=== PATIENT | female | born 1985 | race Caucasian/White ===

== ENCOUNTER 2019-02-14 21:59 | Emergency (ER) | payer OTHER ==
--- NOTE | 2019-02-14 22:27 | ERPHSYRPT ---
- History of Present Illness Time Seen by Provider: 02/14/19 22:21 Source: patient Exam Limitations: no limitations Patient Subjective Stated Complaint: pt states at home she began having tunnel vision, difficulty forming sentences, and difficulty remembering some names. states after approx 5 minutes, difficulty speaking and memory problems resolved but still has tunnel vision and headache which is typical of her migraines Triage Nursing Assessment: pt alert and oreinted, answers questions approp. pt ambulatory with steady gait noted. respirations nonlabored with lungs cta. skin warm and dry. pupils equal and reactive. Physician History: 33-year-old white female 3 para 2 who states she is 36 weeks arrives with complaint of frontal headache associated with memory loss and some speech problems she states the headache began at approximately 8:00 shortly thereafter she had approximately 5-10 minutes where she was having problems forming sentences and had some slurry speech patient states that his memory problems and slurry speech resolved after 5-10 minutes she is now has a left frontal headache and some tunnel vision she states she gets tunnel vision with her migraines. She is not having any problems . moving or speaking at this time. Past medical history includes migraines she past surgical history is negative Timing/Duration: today (8:30 thyis evening) Severity: moderate Associated Symptoms: headaches, other (tunnel vision, brief episode of memory loss and slurry speech lasting 5-10 minutes), No nausea, No vomiting, No abdominal pain, No shortness of breath, No heartburn, No diaphoresis, No cough, No chills, No chest pain, No fever, No loss of appetite, No malaise, No rash, No syncope, No seizure, No weakness Allergies/Adverse Reactions: No Known Drug Allergies Allergy (Verified 02/14/19 22:17) Home Medications: Vits W-Ca,Fe,FA(<1Mg) [] 1 each PO DAILY 02/14/19 [History] Hx Tetanus, Diphtheria Vaccination/Date Given: Yes Hx Influenza Vaccination/Date Given: No Hx Pneumococcal Vaccination/Date Given: No Immunizations Up to Date: Yes - Review of Systems Constitutional: No Fever, No Chills Eyes: Other (tunnel vision) Ears, Nose, & Throat: No Symptoms Respiratory: No Cough, No Dyspnea Cardiac: No Chest Pain, No Edema, No Syncope Abdominal/Gastrointestinal: No Abdominal Pain, No Nausea, No Vomiting, No Diarrhea Musculoskeletal: No Back Pain, No Neck Pain Skin: No Rash Neurological: Headache, Other (5-10 minutes of memory loss and slurry speech) Psychological: No Symptoms Endocrine: No Symptoms All Other Systems: Reviewed and Negative - Past Medical History Pertinent Past Medical History: No Neurological History: Migraines ENT History: No Pertinent History Cardiac History: No Pertinent History Respiratory History: No Pertinent History Endocrine Medical History: No Pertinent History Musculoskeletal History: No Pertinent History GI Medical History: GERD History: No Pertinent History Psycho-Social History: Anxiety Female Reproductive Disorders: No Pertinent History - Past Surgical History Past Surgical History: Yes Neuro Surgical History: No Pertinent History Cardiac: No Pertinent History Respiratory: No Pertinent History Gastrointestinal: No Pertinent History Genitourinary: No Pertinent History Musculoskeletal: Orthopedic Surgery Female Surgical History: No Pertinent History Other Surgical History: T&A, fx right arm with surgery x three with hdwe in and out, sinsus surgery - Social History Smoking Status: Never smoker Exposure to second hand smoke: No Drug Use: none Patient Lives Alone: No - Female History Hx Now: Yes Expected Date of Delivery: 03/12/19 - Nursing Vital Signs Nursing Vital Signs: Initial Vital Signs Temperature 98.3 F 02/14/19 22:04 Pulse Rate 86 02/14/19 22:04 Respiratory Rate 16 02/14/19 22:04 Blood Pressure 132/81 02/14/19 22:04 O2 Sat by Pulse Oximetry 100 02/14/19 22:04 Pain Scale Pain Intensity 4 - Physical Exam General Appearance: no apparent distress, alert Eye Exam: PERRL/EOMI, eyes nml inspection Ears, Nose, Throat Exam: normal ENT inspection, TMs normal, pharynx normal, moist mucous membranes Neck Exam: normal inspection, non-tender, supple, full range of motion Respiratory Exam: normal breath sounds, lungs clear, No respiratory distress Cardiovascular Exam: regular rate/rhythm, normal heart sounds, normal peripheral pulses, capillary refill <2 sec Gastrointestinal/Abdomen Exam: soft, normal bowel sounds, other (Gravid abdomen) , No tenderness, No mass Back Exam: normal inspection Extremity Exam: normal inspection, normal range of motion, pelvis stable Neurologic Exam: alert, oriented x 3, cooperative, block cutter II-XII nml as tested, normal mood/affect, nml cerebellar function, nml station & gait, sensation nml, other (patient alert, oriented x3, cranial nerves II through XII are intact, DTRs symmetrical equal 2/4 speech normal, no facial droop, normal finger to nose.no pronator drift. Sensation intact to all extremities. Full range of motion all extremities.), No motor deficits Skin Exam: normal color, warm, dry, No rash SpO2 Interpretation: normal (100%) SpO2: 100 - Course Nursing assessment & vital signs reviewed: Yes Ordered Tests: Active Orders 24 hr Category Date Time Status IV Insertion STAT Care 02/14/19 22:20 Active AMYLASE Stat Lab 02/14/19 22:30 Completed CBC W DIFF Stat Lab 02/14/19 22:30 Completed CMP Stat Lab 02/14/19 22:30 Completed LIPASE Stat Lab 02/14/19 22:30 Completed UA W/RFX UR CULTURE Stat Lab 02/14/19 22:57 Completed Medication Summary Generic Name Dose Route Start Last Admin Trade Name Freq PRN Reason Stop Dose Admin Sodium Chloride 1,000 mls @ 100 mls/hr 02/14/19 22:30 02/14/19 22:46 Sodium Chloride 0.9% 1000 Ml IV 03/16/19 22:29 100 mls/hr .Q10H NANDO Administration Discontinued Medications Generic Name Dose Route Start Last Admin Trade Name Freq PRN Reason Stop Dose Admin Morphine Sulfate 2 mg 02/14/19 23:03 02/14/19 23:08 Morphine Sulfate 2 Mg Inj IV 02/14/19 23:04 2 mg STAT ONE Administration Morphine Sulfate Confirm 02/14/19 23:04 Morphine Sulfate 2 Mg Inj Administered 02/14/19 23:05 Dose 2 mg .ROUTE .STK-MED ONE Ondansetron HCl 4 mg 02/14/19 23:03 02/14/19 23:08 Zofran 4 Mg/2 Ml Vial IV 02/14/19 23:04 4 mg STAT ONE Administration Ondansetron HCl Confirm 02/14/19 23:04 Zofran 4 Mg/2 Ml Vial Administered 02/14/19 23:05 Dose 4 mg .ROUTE .STK-MED ONE Lab/Rad Data: Laboratory Result Diagrams 02/14/19 22:30 02/14/19 22:30 Laboratory Results 02/14/19 02/14/19 02/14/19 Range/Units 22:57 22:30 22:30 WBC 8.2 (4.0-10.5) K/mm3 RBC 3.33 L (4.1-5.4) M/mm3 Hgb 11.1 L (12.0-16.0) gm/dl Hct 31.9 L (35-47) % MCV 95.8 (78-100) fl MCH 33.3 H (26-32) pg MCHC 34.8 (32-36) g/dl RDW 12.4 (11.5-14.0) % Plt Count 201 (150-450) K/mm3 MPV 10.9 H (6-9.5) fl Gran % 67.1 H (36.0-66.0) % Eos # (Auto) 0.06 (0-0.5) Absolute Lymphs (auto) 1.77 (1.0-4.6) Absolute Monos (auto) 0.87 (0.0-1.3) Lymphocytes % 21.5 L (24.0-44.0) % Monocytes % 10.6 (0.0-12.0) % Eosinophils % 0.7 (0.00-5.0) % Basophils % 0.1 (0.0-0.4) % Absolute Granulocytes 5.53 (1.4-6.9) Basophils # 0.01 (0-0.4) Sodium 136 L (137-145) mmol/L Potassium 3.7 (3.5-5.1) mmol/L Chloride 108 H (98-107) mmol/L Carbon Dioxide 19 L (22-30) mmol/L Anion Gap 12.1 (5-15) MEQ/L BUN 8 (7-17) mg/dL Creatinine 0.50 L (0.52-1.04) mg/dL Estimated GFR > 60.0 ML/MIN Glucose 109 H (74-106) mg/dL Calcium 9.0 (8.4-10.2) mg/dL Total Bilirubin 0.30 (0.2-1.3) mg/dL AST 22 (14-36) U/L ALT 19 (0-35) U/L Alkaline Phosphatase 104 (38-126) U/L Serum Total Protein 6.9 (6.3-8.2) g/dL Albumin 3.6 (3.5-5.0) g/dL Amylase 117 H (30-110) U/L Lipase 108 (23-300) U/L Urine Color STRAW (YELLOW) Urine Appearance CLEAR (CLEAR) Urine pH 7.0 (5-6) Ur Specific [place] 1.006 (1.005-1.025) Urine Protein NEGATIVE (Negative) Urine Ketones NEGATIVE (NEGATIVE) Urine Blood NEGATIVE (0-5) Skyler/ul Urine Nitrite NEGATIVE (NEGATIVE) Urine Bilirubin NEGATIVE (NEGATIVE) Urine Urobilinogen NEGATIVE (0-1) mg/dL Ur Leukocyte Esterase NEGATIVE (NEGATIVE) Urine WBC (Auto) NONE (0-5) /HPF Urine RBC (Auto) NONE (0-2) /HPF U Epithel Cells (Auto) NONE (FEW) /HPF Urine Bacteria (Auto) NONE SEEN (NEGATIVE) /HPF Urine Mucus (Auto) SLIGHT (NEGATIVE) /HPF Urine Culture Reflexed NO (NO) Urine Glucose NEGATIVE (NEGATIVE) mg/dL - Progress Progress: improved Progress Note: 02/14/19 22:44 33-year-old white female 3 para 2 with a estimated gestational age of 36 weeks arrives with complaint of left-sided frontal headache associated with tunnel vision which began at about 8:30 shortly thereafter she had approximately 5-10 minutes of problems getting her words out and some slurry speech. This has resolved she arrives she is alert oriented x3 she has a normal neurological examination. She stated that she was not having abdominal pain the nurses state that she has an occasional contraction. She is not vomiting at this time. Patient's blood pressure initially 132/81 this is improved patient with a temperature of 98 3 pulse 86 respirations 16 saturations were 100% The patient's physician is Dr. Pierson in [place] I've contacted Dr. Rivera salesperson recreational vehicles for Dr. Pierson and she recommended that I contact Dr. Ibarra at the maternal center in [place]. I discussed the case with Dr. Hernandez he recommended at this time not to do CT patient is being given normal saline at 100 mL per hour she appears to be stable. CBC CMP UA have been ordered. Maternal medicine will come to get the patient from [place]. I've asked OB to the place the patient on maternal monitor. 02/14/19 22:57 monitor: Variable heart rate 130s. Occasional contractions Patient states that yesterday her cervix was checked she was 1 cm dilated 30% effaced the will to stay is a transfer techs. - Departure Departure Disposition: Transfer ([facility]) Clinical Impression: Intrauterine 36 weeks EGA, Transient speech disturbance Headache Qualifiers: Headache type: unspecified Headache chronicity pattern: acute headache Intractability: not intractable Qualified Code(s): R51 - Headache Condition: Fair Critical Care Time: No Referrals: VELMA BAINS NP [Primary Care Provider] -
[2019-02-14] MEDS ORDERED: Sodium Chloride 0.9% 1000 ML 1,000 ML IV SCH (22:30)
[2019-02-14] MEDS ORDERED: Sodium Chloride 0.9% 1000 ML 1,000 ML ONE (22:44)
[2019-02-14 22:50] LABS: ALBUMIN 3.6 g/dL (3.5-5.0); ALKALINE PHOSPHATASE 104 U/L (38-126); AMYLASE 117 U/L (30-110); ANION GAP 12.1 MEQ/L (5-15); BLOOD UREA NITROGEN 8 mg/dL (7-17); CHLORIDE 108 mmol/L (98-107); Carbon Dioxide 19 mmol/L (22-30); Glucose 109 mg/dL (74-106); Potassium 3.7 mmol/L (3.5-5.1); SGOT/AST 22 U/L (14-36); SGPT/ALT 19 U/L (0-35); SODIUM 136 mmol/L (137-145); Total Protein 6.9 g/dL (6.3-8.2)
[2019-02-14 22:52] LABS: BASOPHIL % 0.1 % (0.0-0.4); Basophil (Absolute #) 0.01 (0-0.4); Eosinophil % 0.7 % (0.00-5.0); Eosinophil (Absolute #) 0.06 (0-0.5); Granulocyte Absolute (ANC) 5.53 (1.4-6.9); Granulocytes % 67.1 % (36.0-66.0); Hematocrit 31.9 % (35-47); Hemoglobin 11.1 gm/dl (12.0-16.0); Lymphocyte (Absolute #) 1.77 (1.0-4.6); Lymphocytes % 21.5 % (24.0-44.0); Mean Cell Volume 95.8 fl (78-100); Mean Corpuscular Hemoglobin 33.3 pg (26-32); Mean Corpuscular Hgb Concent. 34.8 g/dl (32-36); Mean Platelet Volume 10.9 fl (6-9.5); Monocyte (Absolute #) 0.87 (0.0-1.3); Monocytes % 10.6 % (0.0-12.0); Platelet Count 201 K/mm3 (150-450); Red Blood Count 3.33 M/mm3 (4.1-5.4); Red Cell Distribution Width 12.4 % (11.5-14.0); White Blood Count 8.2 K/mm3 (4.0-10.5)
[2019-02-14] MEDS ORDERED: Zofran 4 MG/2 ML VIAL IV ONE (23:03)
[2019-02-14] MEDS ORDERED: MORPHINE SULFATE 2 MG INJ IV ONE (23:03)
[2019-02-14] MEDS ORDERED: Zofran 4 MG/2 ML VIAL ONE (23:04)
[2019-02-14] MEDS ORDERED: MORPHINE SULFATE 2 MG INJ ONE (23:04)
[2019-02-14 23:11] LABS: Appearance CLEAR (CLEAR); Bilirubin NEGATIVE (NEGATIVE); Blood NEGATIVE Ery/ul (0-5); Glucose NEGATIVE (NEGATIVE); Ketones NEGATIVE (NEGATIVE); Leukocyte Esterase NEGATIVE (NEGATIVE); Mucus SLIGHT /HPF (NEGATIVE); Nitrite NEGATIVE (NEGATIVE); Protein,Urine Dip NEGATIVE (Negative); Specific Gravity 1.006 (1.005-1.025); Urobilinogen NEGATIVE mg/dL (0-1)
[2019-02-14 23:12] LABS: Bacteria NONE SEEN /HPF (NEGATIVE)
[2019-02-15 01:18] VITALS: BP 105/74; PULSE 80; O2SAT 99
== END 2019-02-15 01:18 | disposition short-term general hospital (02) ==
LOC: ED 21:59
DX: O26.893 Other specified pregnancy related conditions, third trimester (principal); Z3A.36 36 weeks gestation of pregnancy; R51 Headache; H53.489 Generalized contraction of visual field, unspecified eye; R47.81 Slurred speech; R41.3 Other amnesia
CPT/HCPCS: 36000; 36415; 80053; 81001; 82150; 83690; 85025; 96374; 96375; 99284; J2270; J2405